=== PATIENT | female | born 1970 | race Caucasian/White ===

== ENCOUNTER 2017-03-05 12:38 | Emergency (ER) | payer OTHER ==
[~2017-03-05] VITALS: Ht 175.3 cm; Wt 90.7 kg
[~2017-03-05 12:38] MED LIST: THYR30TA2 PO
[2017-03-05] MEDS ORDERED: IBUPROFEN 800 MG TABLET PO ONE (14:15)
[2017-03-05] MEDS ORDERED: IBUPROFEN 800 MG TABLET ONE (14:35)
--- NOTE | 2017-03-05 14:46 | NUR ---
Patient discharged to home in stable conditon. Written and verbal after care instructions given. Patient verbalizes understanding of instructions. Stressed follow up for wound check in 2 days.
== END 2017-03-05 14:48 | disposition home or self-care (01) ==
LOC: ER 12:38
DX: S61.211A Laceration without foreign body of left index finger without damage to nail, initial encounter (principal); E03.9 Hypothyroidism, unspecified; W26.0XXA Contact with knife, initial encounter; Y93.89 Activity, other specified; Y92.9 Unspecified place or not applicable; Y99.9 Unspecified external cause status
CPT/HCPCS: A4217; A4663